=== PATIENT | female | born 1960 | race Asian ===

== ENCOUNTER 2016-09-20 17:47 | Inpatient (IN) | payer OTHER ==
[2016-09-20 18:23] LABS: % IMMATURE GRANULYOCYTES 0.1 % (0.0-1.1); ABSOLUTE IMMATURE GRANULOCYTES 0.01 10^3/uL (0.00-0.10); ADD DIFF? NO; ADD MORPH? NO; ADD SCAN? NO; ATYPICAL LYMPHOCYTE FLAG 0 (0-99); FRAGMENT RBC FLAG 0 (0-99); HEMATOCRIT 44.9 % (38.0-47.0); HEMOGLOBIN 15.1 g/dL (12.6-16.3); LEFT SHIFT FLG 0 (0-99); LIPEMIA HEMOLYSIS FLAG 80 (0-99); MEAN CELL HEMOGLOBIN CONCENTR. 33.6 g/dL (32.4-36.7); MEAN CELL VOLUME 98.2 fL (81.5-99.8); MEAN PLATELET VOLUME 9.5 fL (8.7-11.7); PLATELET CLUMPS FLAG 60 (0-99); PLATELET COUNT 206 10^3/uL (150-400); RED BLOOD CELL COUNT 4.57 10^6/uL (4.18-5.33); RED CELL DISTRIBUTION WIDTH 12.8 % (11.5-15.2)
[2016-09-20 18:43] LABS: ANION GAP 12 mEq/L (8-16); CALCIUM 10.1 mg/dL (8.5-10.4); CARBON DIOXIDE 21 mEq/l (22-31); CHLORIDE 110 mEq/L (97-110); CREATININE 0.6 mg/dL (0.6-1.0); ETHANOL SERUM < 10 mg/dL (0-10); GLOMERULAR FILTRATION RATE > 60; GLUCOSE 111 mg/dL (70-100); POTASSIUM 3.8 mEq/L (3.5-5.2); SALICYLATE < 1.0 mg/dL (2.0-20.0); SODIUM 143 mEq/L (134-144)
--- NOTE | 2016-09-20 20:11 | EDPHY ---
H & P Time Seen by Provider: 09/20/16 17:56 HPI/ROS: HPI Suicidal thoughts. 56-year-old female by private vehicle. She has a history of depression, anxiety and nervous breakdowns. She reports that when she has nervous breakdown she often become suicidal. She reports that she was having a nervous breakdown at home earlier this evening. She then became suicidal and thought of overdosing on Phenergan. On my evaluation she currently states that she does not feel suicidal but does not want to go home. She denies any alcohol or other ingestions tonight. ROS: Constitutional: No fever, no chills. No weakness. Eyes: No discharge. No changes in vision. ENT: No sore throat. No nasal congestion or rhinorrhea. Respiratory: No cough. No shortness of breath. Cardiac: No chest pain, no palpitations. Gastrointestinal: No abdominal pain, no vomiting, no diarrhea. Genitourinary: No hematuria. No dysuria or increased frequency with urination. Musculoskeletal: No back pain. No neck pain. No myalgias or arthralgias. Skin: No rashes. Neurological: No headache. No focal weakness or altered sensation. Past medical history: Anxiety, depression. Social history: Here by herself. Nonsmoker. Denies alcohol. Physical Exam: General Appearance: Alert, no distress. This patient is responding to questions appropriately and in full sentences. This patient appears well- hydrated and well-nourished. Eyes: Pupils equal and round no pallor or injection. No lid edema, erythema or injection. Respiratory: There are no retractions, lungs are clear to auscultation with good air movement bilaterally. Cardiovascular: Regular rate and rhythm. No murmur. Gastrointestinal: Abdomen is soft and nontender, no masses, bowel sounds normal. No focal tenderness at McBurney's point. No Cramer sign. Neurological: Motor sensory function is grossly intact. Cranial nerves are normal. Gait is normal. Skin: Warm and dry, no rashes. Musculoskeletal: Neck is supple and nontender. Extremities are symmetrical. All joints range without pain or impingement. Psychiatric: No agitation. Flat affect. Database: EKG: Imaging: Procedures: Emergency department course: Patient placed on a detainer on arrival. Patient seen by TLC promptly after being medically cleared by me. Patient placed on a M1 hold by a [facility]. She is going to be admitted to [address] [place] [address]. I have filled out the appropriate transfer paperwork. She was transferred to [address] [place] [address] in stable and improved condition. Differential Diagnosis: The differential diagnosis on this patient includes but is not limited to situational depression, major depression, suicidal ideation. This represents a partial list of diagnoses considered. These considerations are based on history , physical exam, past history, reassessment and diagnostic testing. Smoking Status: Light smoker Constitutional: Initial Vital Signs Temperature (C) 36.5 C 09/20/16 17:52 Heart Rate 83 09/20/16 17:52 Respiratory Rate 14 09/20/16 17:52 Blood Pressure 88/61 L 09/20/16 17:52 O2 Sat (%) 94 09/20/16 17:52 O2 Delivery Mode Room Air Allergies/Adverse Reactions: latex Allergy (Verified 09/20/16 17:52) morphine Allergy (Verified 09/20/16 17:52) Home Medications: Medication Instructions Recorded CLONAZEPAM 09/20/16 Celexa 09/20/16 Medical Decision Making - Data Points Laboratory Results: Laboratory Results 09/20/16 18:13 09/20/16 18:13 09/20/16 09/20/16 09/20/16 18:29 18:13 18:13 WBC RBC Hgb Hct MCV MCH MCHC RDW Plt Count MPV Neut % (Auto) Lymph % (Auto) Marathon % (Auto) Eos % (Auto) Baso % (Auto) Nucleat RBC Rel Count Absolute Neuts (auto) Absolute Lymphs (auto) Absolute Monos (auto) Absolute Eos (auto) Absolute Basos (auto) Absolute Nucleated RBC Immature Gran % Immature Gran # Sodium 143 mEq/L mEq/L (134-144) Potassium 3.8 mEq/L mEq/L (3.5-5.2) Chloride 110 mEq/L mEq/L (97-110) Carbon Dioxide 21 mEq/l L mEq/l (22-31) Anion Gap 12 mEq/L mEq/L (8-16) BUN 10 mg/dL mg/dL (7-23) Creatinine 0.6 mg/dL mg/dL (0.6-1.0) Estimated GFR > 60 Glucose 111 mg/dL H mg/dL (70-100) Calcium 10.1 mg/dL mg/dL (8.5-10.4) Beta HCG, Qual NEGATIVE Salicylates < 1.0 mg/dL L mg/dL (2.0-20.0) Urine Opiates Screen NEGATIVE (NEGATIVE) Acetaminophen < 10 mcg/mL L mcg/mL (10.0-30.0) Urine Barbiturates NEGATIVE (NEGATIVE) Ur Phencyclidine Scrn NEGATIVE (NEGATIVE) Ur Amphetamine Screen NEGATIVE (NEGATIVE) U Benzodiazepines Scrn NEGATIVE (NEGATIVE) Urine Cocaine Screen NEGATIVE (NEGATIVE) U Marijuana (THC) Screen NEGATIVE (NEGATIVE) Ethyl Alcohol < 10 mg/dL mg/dL (0-10) 09/20/16 18:13 WBC 7.20 10^3/uL 10^3/uL (3.80-9.50) RBC 4.57 10^6/uL 10^6/uL (4.18-5.33) Hgb 15.1 g/dL g/dL (12.6-16.3) Hct 44.9 % % (38.0-47.0) MCV 98.2 fL fL (81.5-99.8) MCH 33.0 pg pg (27.9-34.1) MCHC 33.6 g/dL g/dL (32.4-36.7) RDW 12.8 % % (11.5-15.2) Plt Count 206 10^3/uL 10^3/uL (150-400) MPV 9.5 fL fL (8.7-11.7) Neut % (Auto) 47.4 % % (39.3-74.2) Lymph % (Auto) 45.8 % H % (15.0-45.0) Marathon % (Auto) 5.6 % % (4.5-13.0) Eos % (Auto) 0.8 % % (0.6-7.6) Baso % (Auto) 0.3 % % (0.3-1.7) Nucleat RBC Rel Count 0.0 % % (0.0-0.2) Absolute Neuts (auto) 3.41 10^3/uL 10^3/uL (1.70-6.50) Absolute Lymphs (auto) 3.30 10^3/uL H 10^3/uL (1.00-3.00) Absolute Monos (auto) 0.40 10^3/uL 10^3/uL (0.30-0.80) Absolute Eos (auto) 0.06 10^3/uL 10^3/uL (0.03-0.40) Absolute Basos (auto) 0.02 10^3/uL 10^3/uL (0.02-0.10) Absolute Nucleated RBC 0.00 10^3/uL 10^3/uL (0-0.01) Immature Gran % 0.1 % % (0.0-1.1) Immature Gran # 0.01 10^3/uL 10^3/uL (0.00-0.10) Sodium Potassium Chloride Carbon Dioxide Anion Gap BUN Creatinine Estimated GFR Glucose Calcium Beta HCG, Qual Salicylates Urine Opiates Screen Acetaminophen Urine Barbiturates Ur Phencyclidine Scrn Ur Amphetamine Screen U Benzodiazepines Scrn Urine Cocaine Screen U Marijuana (THC) Screen Ethyl Alcohol Departure - Departure Disposition: [facility] IP Clinical Impression: Suicidal ideation Referrals: STEPHIE RIOS [Primary Care Provider] - As per Instructions
[2016-09-21] MEDS ORDERED: MAG HYDROX/AL HYDROX/SIMETH 30 ML UDCUP PO PRN (00:50)
[2016-09-21] MEDS ORDERED: ACETAMINOPHEN 325 MG TAB PO PRN (00:50)
[2016-09-21] MEDS ORDERED: MAGNESIUM HYDROXIDE 30 ML UDCUP PO PRN (00:50)
[2016-09-21] MEDS: clonazePAM 1 MG TAB PO SCH ×2 (00:57→20:43)
[2016-09-21] MEDS: CITALOPRAM 20 MG TAB PO SCH ×2 (00:57→20:43)
[2016-09-21] MEDS: ALBUTEROL 60 PUFFS/8 GM MDI IH PRN ×2 (00:57→09:23)
--- NOTE | 2016-09-21 09:12 | GCON ---
DATE OF CONSULTATION: 09/21/2016 HISTORY OF PRESENT ILLNESS: The patient is a pleasant 56-year-old female with a history of depressi on and pancreatitis who presents with suicidality and depression. She was having suicidal ideation, stating she would overdose on Phenergan. She is currently living with her mother, and she feels li ke it is exacerbating her mood. She does have a history of depression. She denies recent fevers, c hills, cough, sputum, nausea, vomiting, or diarrhea. She does not drink alcohol. REVIEW OF SYSTEMS: A complete 10-point review of systems was conducted and negative except as noted in the HPI. PAST MEDICAL HISTORY: 1. Status post cholecystectomy. 2. Choledocholithiasis. 3. History of pancreatitis with ERCP. 4. Depression. ALLERGIES: Morphine and latex. MEDICATIONS: Lexapro and clonazepam. FAMILY HISTORY: Notable for diabetes. SOCIAL HISTORY: She does smoke cigarettes. No alcohol. Currently living with her mother and not w orking. PHYSICAL EXAM: VITAL SIGNS: Temp 36.4, blood pressure 106/52, pulse 68, breathing 16 times a minut e, 94% on room air. GENERAL: No acute distress. HEENT: Sclerae anicteric. Oropharynx clear. Mu cous membranes moist. NECK: Supple without lymphadenopathy or JVD. LUNGS: Clear to auscultation bilaterally. HEART: S1, S2. ABDOMEN: Soft, nontender, nondistended. LOWER EXTREMITIES: No flor a. Calves are nontender. SKIN: Without rash. NEUROLOGIC: Nonfocal. LABS: Chem 7 normal. CBC normal. White count normal. Negative beta HCG. Tox screen is unremarka ble. ASSESSMENT/PLAN: This is a 56-year-old female with suicidality. 1. Medical evaluation. I think the patient is medically well. TSH was not checked and I have writ ten for that. Please call me on the hospital pager if it is abnormal. 2. Suicidality. This appears to be a mood disorder. Management per Psychiatry. /[id number]/MODL
--- NOTE | 2016-09-21 16:07 | BAPA ---
DATE OF SERVICE: 09/21/2016 CHIEF COMPLAINT: "I need help controlling my emotions." HISTORY OF PRESENT ILLNESS: Patient is a 56-year-old female with a history of treatment-resis tant depression since 1996. She has had concomitant anxiety for the past 10 years as well. She rep orts having done very well on a combination of Zoloft and Klonopin for a number of years but decidin g to go off it about 6 months ago due to cost. She states that money has been very tight, and she a nd her boyfriend have been living with her mother and that until she switched her insurance she was not eligible for any of the discount plans. She reports doing well for a month or so, smoking more pot at bedtime for sleep and did not notice any difference, but she reports starting in March he r mood began to decline; her anxiety increased. Finally about a month ago, she returned to her [facility] physician to restart her medications. She started Celexa and Klonopin at that time. The C elexa was chosen because she was on a 4-dollar plan and she could not afford the Zoloft. She report s currently still feeling depressed. She feels "trapped" living with her mother with whom she does not get along. She states they argue constantly over the fact that her boyfriend lives there, and h er mother states that she did not give him permission to be there. She has told them they have unti l the end of August to leave, and she states that they have had more stress about a rental propert y that they want to rent that is not finished. She reports frequent crying episodes multiple times a day, poor energy and motivation, anhedonia, withdrawal from her friends and family, excessive slee p of more than 12 hours per day, feelings of helplessness, hopelessness and despair and recent thoug hts of , dying and suicide. She states that these have increased over the last several days, a nd she had a plan to overdose on her psychotropic medicines. She disclosed this to her boyfriend wh o brought her to the hospital. PAST PSYCHIATRIC HISTORY: Patient has had psychotherapy several times previously, not currently. S he has also seen several psychiatrists, but her medicines are currently prescribed by her primary [facility] physician at [facility]. She previously has tried Zoloft, Cymbalta, Prozac, Paxil, Klonopin and Awa exa. The Celexa was started a month ago at 20 and increased to 40 about a week ago. She notes no p revious psychiatric hospitalizations. She has had recurrent suicidal ideations over the years, thou gh has had no suicide attempts. ALLERGIES: Latex and morphine. MEDICATIONS: Celexa 40 mg daily and Klonopin 1 mg h.s. PAST MEDICAL HISTORY: Significant for reported daily migraines. SOCIAL HISTORY: The patient has been twice, and has a daughter who is 16. She gave the candida lozano up for adoption, however, and did not reconnect with her until a year ago. She states that mary michael now communicate via Facebook, and she made plans to meet her in the future. She has a boyfriend of 2 years whom she states that she knew through high school. The patient was born and raised in [place] [place] [facility] and currently lives with her mother and her boyfriend in her mother's home in [place]. She i s a high school grad with a BA in Women and the Law. She is on SSDI since 2012 for her psychiatric conditions. SUBSTANCE ABUSE HISTORY: The patient occasionally smokes marijuana. She states that it was more fr equent when she was off the medications, though now is less than once a week. She denies any alcoho l use or other drugs. FAMILY HISTORY: Patient's older sister suffers from depression. ADMISSION LABORATORY: CBC is normal. Serum chemistries are normal. Beta hCG is negative. Urine d rug screen is negative for all substances. IMPRESSION: Major depressive disorder, recurrent, severe, without psychosis, chronic and treatment- resistant features, family conflict, lack of permanent housing, financial stress, recurrent illness, chronic illness and cannabis use disorder, moderate and treatment noncompliance. Patient is a 56-year-old, Indian female who presents at this time in a very depressed state. She states that she wants to be back on her medications and initially we were talking about her go ing back on her Zoloft. She states she only did not go back on it because it was more expensive jonelle n the Celexa. I reviewed the choices with her and certainly said we could do that, but also the Awa exa was probably more calming, especially at the high doses of Zoloft she was taking before at 200. She was given the option of restarting Zoloft at 100 or continuing the Celexa 40 mg to give it more time to be effective. I also offered her the option of augmentations, including discussions of [facility] augmenting agents lithium, thyroid and amphetamines and Abilify. She is unable to afford Abili fy and was interested in trying lithium. The risks, benefits and alternatives of lithium were discu ssed with her at length, and she agreed to proceed. She is aware of the potential toxicities, inclu ding cardiac toxicity and was also aware that we are unable to get an EKG on the weekends at this [facility]. She is willing to forego this and begin treatment. She has no history of any cardiac dysfu nction or problems including any history of arrhythmias. Estimated length of stay is 3-5 days. /[id number]/MODL
[2016-09-21] MEDS: NICOTINE POLACRILEX 2 MG GUM B PRN (17:53)
[2016-09-22] MEDS: NICOTINE POLACRILEX 2 MG GUM B PRN ×3 (09:37→18:58)
[2016-09-22] MEDS ORDERED: LITHIUM CARBONATE ER 450 MG TAB PO ONE (11:00)
[2016-09-22] MEDS: ALBUTEROL 60 PUFFS/8 GM MDI IH PRN (18:58)
[2016-09-22] MEDS: CITALOPRAM 20 MG TAB PO SCH (20:35)
[2016-09-22] MEDS: clonazePAM 1 MG TAB PO SCH (20:36)
[2016-09-22] MEDS: LITHIUM CARBONATE ER 450 MG TAB PO SCH (20:36)
--- NOTE | 2016-09-22 22:35 | SOAPPROG ---
SOAP Progress Note Assessment/Plan: Assessment: Plan: 09/22/16 22:35 Improved. Will proceed with lithium augmentation. Subjective: Pt seen, discussed with staff. Reports feeling brighter, more hopeful. Active in therapies. Appreciative of support from BF. Objective: Vital Signs Temp Pulse Resp BP Pulse Ox 36.7 C 64 14 110/51 L 96 09/22/16 06:00 09/22/16 06:00 09/22/16 06:00 09/22/16 06:00 09/22/16 06:00 MSE: Calm, coop. Affect is brighter, stable. Mood is "better." TP linear. TC reveals no psychosis. No SI. - Time Spent With Patient Time Spent With Patient: 15" - Pending Discharge Pending Discharge Within 24 Hours: No Pending Discharge Within 48 Hours: No ICD10 Worksheet Patient Problems: Problems Problem Status Onset Suicidal ideation Acute
[2016-09-23] MEDS: ALBUTEROL 60 PUFFS/8 GM MDI IH PRN ×3 (07:42→21:04)
[2016-09-23] MEDS: LORazepam 0.5 MG TAB PO PRN ×2 (08:48→15:30)
[2016-09-23] MEDS: NICOTINE POLACRILEX 2 MG GUM B PRN ×3 (09:48→17:34)
[2016-09-23] MEDS: IBUPROFEN 600 MG TAB PO PRN (15:35)
--- NOTE | 2016-09-23 18:34 | SOAPPROG ---
SOAP Progress Note Assessment/Plan: Assessment: Plan: 09/22/16 22:35 Improved. Will proceed with lithium augmentation. 09/23/16 18:35 Improved, but still struggling with family conflicts. Significant Borderline traits in interactions with mother. Will [facility], monitor. Subjective: Pt seen, discussed with staff. Reports feeling "out of sorts." C/o increased anxiety and decreased mood after her mother called the unit yesterday. She had apparently randomly called the ED searching for pt and the ED called the unit to get permission to transfer the call. Pt agreed, but refused to actually talk to her mother. She tells me that she doesn't want to talk to any of her relatives. She remains angry that her mother wants her and her BF out of her home. She states her BF is also mad and refuses to tell her mother anything about her whereabouts. They have no place to live after 09/25/16 by pt report. She is tolerating Li well with no SE's. Objective: Vital Signs Temp Pulse Resp BP Pulse Ox 36.4 C 62 14 119/57 L 97 09/23/16 06:00 09/23/16 06:00 09/23/16 06:00 09/23/16 06:00 09/23/16 06:00 MSE: Calm, coop. Affect is constricted, stable. Mood is "not very good." TP linear. TC reveals no psychosis. Denies active SI. - Time Spent With Patient Time Spent With Patient: 25" - Pending Discharge Pending Discharge Within 24 Hours: No Pending Discharge Within 48 Hours: No ICD10 Worksheet Patient Problems: Problems Problem Status Onset Suicidal ideation Acute
[2016-09-23] MEDS: CITALOPRAM 20 MG TAB PO SCH (21:02)
[2016-09-23] MEDS: LITHIUM CARBONATE ER 450 MG TAB PO SCH (21:02)
[2016-09-23] MEDS: clonazePAM 1 MG TAB PO SCH (21:02)
[2016-09-24] MEDS: ALBUTEROL 60 PUFFS/8 GM MDI IH PRN ×3 (06:59→18:35)
[2016-09-24] MEDS ORDERED: SUMAtriptan 50 MG TAB PO ONE (09:04)
[2016-09-24] MEDS: LORazepam 0.5 MG TAB PO PRN (09:07)
[2016-09-24] MEDS: NICOTINE POLACRILEX 2 MG GUM B PRN ×3 (09:07→18:35)
[2016-09-24] MEDS ORDERED: SUMAtriptan 25 MG TAB PO ONE ×2 (09:30→14:30)
--- NOTE | 2016-09-24 17:14 | SOAPPROG ---
SOAP Progress Note Assessment/Plan: Assessment: Plan: 09/22/16 22:35 Improved. Will proceed with lithium augmentation. 09/23/16 18:35 Improved, but still struggling with family conflicts. Significant Borderline traits in interactions with mother. Will [facility], monitor. 09/24/16 17:14 Backslid a bit today. CCM. Check lithium level. Subjective: Pt seen, discussed with staff. Reports feeling "pretty down" today mainly due to migraine. Requests Imitrex. Mood remains low. Tolerating lithium well. Objective: Vital Signs Temp Pulse Resp BP Pulse Ox 36.6 C 66 14 99/49 L 96 09/24/16 06:00 09/24/16 06:00 09/24/16 06:00 09/24/16 06:00 09/24/16 06:00 MSE: Calm, coop. Affect is blunted, dysphoric, stable. Mood is "pretty bad." TP linear. TC reveals no psychosis. SI persists. - Time Spent With Patient Time Spent With Patient: 25" ICD10 Worksheet Patient Problems: Problems Problem Status Onset Suicidal ideation Acute
[2016-09-24] MEDS: clonazePAM 1 MG TAB PO SCH (20:43)
[2016-09-24] MEDS: CITALOPRAM 20 MG TAB PO SCH (20:43)
[2016-09-24] MEDS: LITHIUM CARBONATE ER 450 MG TAB PO SCH (20:43)
[2016-09-25] MEDS: LORazepam 0.5 MG TAB PO PRN ×3 (06:10→19:59)
[2016-09-25] MEDS: ALBUTEROL 60 PUFFS/8 GM MDI IH PRN ×2 (06:13→19:59)
[2016-09-25] MEDS: NICOTINE POLACRILEX 2 MG GUM B PRN ×3 (08:45→17:29)
[2016-09-25] MEDS ORDERED: clonazePAM 1 MG TAB PO SCH ×2 (16:37→16:39)
[2016-09-25] MEDS: CITALOPRAM 20 MG TAB PO SCH (21:04)
[2016-09-25] MEDS: LITHIUM CARBONATE ER 450 MG TAB PO SCH (21:04)
[2016-09-26] MEDS: LORazepam 0.5 MG TAB PO PRN ×3 (04:20→19:25)
--- NOTE | 2016-09-26 07:46 | SOAPPROG ---
SOAP Progress Note Assessment/Plan: Assessment: Plan: 09/22/16 22:35 Improved. Will proceed with lithium augmentation. 09/23/16 18:35 Improved, but still struggling with family conflicts. Significant Borderline traits in interactions with mother. Will [facility], monitor. 09/24/16 17:14 Backslid a bit today. CCM. Check lithium level. 09/26/16 07:47 Improving. CCM. Continue d/c planning. Subjective: LATE ENTRY FROM 09/25/16 Pt seen, discussed with staff. Reports feeling better today. Encouraged by CC' s contact with her mother. She remains ambivalent about her relationship with her mother and sees no real duty to care for her. She also doesn't understand why her 86 y/o mother doesn't want pt's BF living in the home. She has offered for pt to live there with her but not her BF. Pt hopes to find other accommodations with her BF. Mood is brighter. H/a's persist at a low level. Tolerating lithium well. Objective: Vital Signs Temp Pulse Resp BP Pulse Ox 36.4 C 79 16 98/47 L 92 09/26/16 05:03 09/26/16 05:03 09/26/16 05:03 09/26/16 05:03 09/26/16 05:03 MSE: Calm, coop. Affect is brighter, stable. Mood is "better." TP linear. TC reveals no psychosis. No current SI. - Time Spent With Patient Time Spent With Patient: 25" ICD10 Worksheet Patient Problems: Problems Problem Status Onset Suicidal ideation Acute
[2016-09-26] MEDS: ALBUTEROL 60 PUFFS/8 GM MDI IH PRN ×3 (09:34→20:57)
[2016-09-26] MEDS: NICOTINE POLACRILEX 2 MG GUM B PRN ×3 (09:34→18:27)
[2016-09-26] MEDS ORDERED: SUMAtriptan 6 MG/0.5 ML VIAL SC ONE ×2 (10:53→14:30)
--- NOTE | 2016-09-26 15:48 | SOAPPROG ---
SOAP Progress Note Assessment/Plan: Assessment: Plan: 09/22/16 22:35 Improved. Will proceed with lithium augmentation. 09/23/16 18:35 Improved, but still struggling with family conflicts. Significant Borderline traits in interactions with mother. Will [facility], monitor. 09/24/16 17:14 Backslid a bit today. CCM. Check lithium level. 09/26/16 07:47 Improving. CCM. Continue d/c planning. 09/26/16 15:48 Continued gradual improvement. CCM. Subjective: Pt seen, discussed with staff. Reports feeling "pretty down." States she awakened at 0330 again last night and went to the nurses' station for some tea. The report this morning was that she slept through the night. Her mood remains low, though appears brighter in the milieu. Tolerating lithium well with no SE's. Objective: Vital Signs Temp Pulse Resp BP Pulse Ox 36.4 C 79 16 98/47 L 92 09/26/16 05:03 09/26/16 05:03 09/26/16 05:03 09/26/16 05:03 09/26/16 05:03 MSE: Calm, coop. Affect is blunted, though she does smile spontaneously at times and responds to humor. TP is linear. TC reveals no psychosis. SI persists. - Time Spent With Patient Time Spent With Patient: 25" ICD10 Worksheet Patient Problems: Problems Problem Status Onset Suicidal ideation Acute
[2016-09-26] MEDS: LITHIUM CARBONATE ER 450 MG TAB PO SCH (18:31)
[2016-09-26] MEDS: clonazePAM 1 MG TAB PO SCH (20:55)
[2016-09-26] MEDS: CITALOPRAM 20 MG TAB PO SCH (20:55)
[2016-09-27] MEDS: ALBUTEROL 60 PUFFS/8 GM MDI IH PRN ×2 (03:22→19:11)
[2016-09-27] MEDS: LORazepam 0.5 MG TAB PO PRN ×2 (03:24→13:18)
[2016-09-27 09:30] LABS: LITHIUM 0.6 mEq/L (0.6-1.2)
[2016-09-27] MEDS: NICOTINE POLACRILEX 2 MG GUM B PRN ×3 (09:34→16:59)
--- NOTE | 2016-09-27 15:05 | SOAPPROG ---
SOAP Progress Note Assessment/Plan: Assessment: Plan: 09/22/16 22:35 Improved. Will proceed with lithium augmentation. 09/23/16 18:35 Improved, but still struggling with family conflicts. Significant Borderline traits in interactions with mother. Will [facility], monitor. 09/24/16 17:14 Backslid a bit today. [facility]. Check lithium level. 09/26/16 07:47 Improving. [facility]. Continue d/c planning. 09/26/16 15:48 Continued gradual improvement. CCM. 09/27/16 15:07 remains dysphoric. Significant character overlay with possible Borderline traits. Will move citalopram dose to 1800 to move peak away from onset of REM predominant sleep. Continue d/c planning. Subjective: Pt seen, discussed with staff. Reports feeling "still down." Awoke at 0330 again. Remains anxious re: d/c and does not want to return to her M's. Participating actively in therapies. Objective: Vital Signs Temp Pulse Resp BP Pulse Ox 35.9 C L 73 14 80/47 L 95 09/27/16 03:37 09/27/16 03:37 09/27/16 03:37 09/27/16 03:37 09/27/16 03:37 MSE: Calm, coop. Affect is blunted, though smiles occasionally. Mood is "not too good." TP linear. TC reveals no psychosis. DI "better", remains linked to d/c plan/housing. - Time Spent With Patient Time Spent With Patient: 25" ICD10 Worksheet Patient Problems: Problems Problem Status Onset Suicidal ideation Acute
[2016-09-27] MEDS: CITALOPRAM 20 MG TAB PO SCH (16:59)
[2016-09-27] MEDS: clonazePAM 1 MG TAB PO SCH (20:16)
[2016-09-27] MEDS: LITHIUM CARBONATE ER 450 MG TAB PO SCH (20:16)
[2016-09-28] MEDS: ALBUTEROL 60 PUFFS/8 GM MDI IH PRN ×3 (02:26→20:47)
[2016-09-28] MEDS: LORazepam 0.5 MG TAB PO PRN ×3 (02:27→19:47)
[2016-09-28] MEDS: NICOTINE POLACRILEX 2 MG GUM B PRN (13:22)
[2016-09-28] MEDS: [UNRECOGNIZED DRUG - OTHER] TP PRN (15:50)
[2016-09-28] MEDS: CITALOPRAM 20 MG TAB PO SCH (17:20)
[2016-09-28] MEDS: LITHIUM CARBONATE ER 450 MG TAB PO SCH (20:46)
[2016-09-28] MEDS: clonazePAM 1 MG TAB PO SCH (20:46)
[2016-09-29] MEDS: LORazepam 0.5 MG TAB PO PRN ×3 (05:16→17:27)
[2016-09-29] MEDS: ALBUTEROL 60 PUFFS/8 GM MDI IH PRN ×3 (05:17→20:59)
[2016-09-29] MEDS: IBUPROFEN 600 MG TAB PO PRN (14:38)
[2016-09-29] MEDS: [UNRECOGNIZED DRUG - OTHER] TP PRN ×2 (15:58→20:59)
[2016-09-29] MEDS: CITALOPRAM 20 MG TAB PO SCH (17:10)
--- NOTE | 2016-09-29 19:57 | SOAPPROG ---
SOAP Progress Note Assessment/Plan: Assessment: 56yo female admitted with hx of chronic MDD since 1996 and worsening anxiety x 10yrs, admitted with recurring worsening depression and SI in context of medication changes and notable psychosocial stressors 09/28/16 16:00 (late entry) sleep 7.5hrs, altho did take a prn Ativan at 0230. denies med s/e. states Klonopin incr to 2mg hs helps her not awaken at night with anxiety attack, and just return to sleep. but did use prn Ativan feels a little lightheaded at times, dizzy w/standing, no tremor or ataxia. chronic daily migraines, affected by stress and weather pressure changes etc. States they have been extensively worked up as outpt. Used to take sumatriptan and get weekly toradol IM. pt states she called her mother last pm. M will visit tomorrow, states she has made a list of what to talk with her about. very anxious about this meeting. also today is 5yr anniv of of her stepfather's , whom she was close to. feels down today about this. talked about her boyfriend, known x 40yrs since HS, he found her on FB and they' ve been back tog for 2.5yrs. now living with her 86yo mother who is trying to get them to move out. family conflict b/c mother and sibs "think he's a liar and a con...", states BF makes her happy, and siblings "just don't want me to be happy" MSE: calm, cooperative,+psychom retardation, low vol speech, nml rate, fair/good eye contact, resticted affect, depr mood, no current SI and feels safe in hosp, no thoughts to harm others. no psychotic sxs. Plan: cont vol, on AG privs cont Celexa 40mg, with Li augmentation taking Klonopin 2mg hs. still using prn ativan occasionally. maintain hydration, recent Li 0.6 Objective: Vital Signs Temp Pulse Resp BP Pulse Ox 36.4 C 87 14 81/43 L 95 09/29/16 06:36 09/29/16 06:36 09/29/16 06:36 09/29/16 06:36 09/29/16 06:36 - Time Spent With Patient Time Spent With Patient: 35min - Pending Discharge Pending Discharge Within 24 Hours: No Pending Discharge Within 48 Hours: No ICD10 Worksheet Patient Problems: Problems Problem Status Onset Suicidal ideation Acute
[2016-09-29] MEDS: LITHIUM CARBONATE ER 450 MG TAB PO SCH (20:44)
[2016-09-29] MEDS: clonazePAM 1 MG TAB PO SCH (20:44)
[2016-09-30] MEDS: ALBUTEROL 60 PUFFS/8 GM MDI IH PRN ×3 (02:51→20:56)
[2016-09-30] MEDS: LORazepam 0.5 MG TAB PO PRN ×3 (02:51→18:24)
[2016-09-30] MEDS: SUMAtriptan 6 MG/0.5 ML VIAL SC PRN (09:21)
[2016-09-30] MEDS: [UNRECOGNIZED DRUG - OTHER] TP PRN ×2 (11:25→15:13)
[2016-09-30] MEDS: CITALOPRAM 20 MG TAB PO SCH (17:00)
[2016-09-30] MEDS: clonazePAM 1 MG TAB PO SCH (20:16)
[2016-09-30] MEDS: LITHIUM CARBONATE ER 450 MG TAB PO SCH (20:17)
--- NOTE | 2016-09-30 21:35 | SOAPPROG ---
SOAP Progress Note Assessment/Plan: Assessment: 56yo female admitted with hx of chronic MDD since 1996 and worsening anxiety x 10yrs, admitted with recurring worsening depression and SI and plan to OD on meds, in context of medication changes and incr psychosocial stressors 09/28/16 16:00 (late entry) sleep 7.5hrs, altho did take a prn Ativan at 0230. denies med s/e. states Klonopin incr to 2mg hs helps her not awaken at night with anxiety attack, and just return to sleep. but did use prn Ativan feels a little lightheaded at times, dizzy w/standing, no tremor or ataxia. chronic daily migraines, affected by stress and weather pressure changes etc. States they have been extensively worked up as outpt. Used to take sumatriptan and get weekly toradol IM. pt states she called her mother last pm. M will visit tomorrow, states she has made a list of what to talk with her about. very anxious about this meeting. also today is 5yr anniv of of her stepfather's , whom she was close to. feels down today about this. talked about her boyfriend, known x 40yrs since HS, he found her on FB and they' ve been back tog for 2.5yrs. now living with her 86yo mother who is trying to get them to move out. family conflict b/c mother and sibs "think he's a liar and a con...", states BF makes her happy, and siblings "just don't want me to be happy" MSE: calm, cooperative,+psychom retardation, low vol speech, nml rate, fair/good eye contact, resticted affect, depr mood, no current SI and feels safe in hosp, no thoughts to harm others. no psychotic sxs. PLAN: cont vol, on AG privs cont Celexa 40mg, with Li augmentation taking Klonopin 2mg hs. still using prn ativan occasionally. maintain hydration, recent Li 0.6 09/29/16 22:21 slept 8hr took Ativan at 5am and returned to sleep. did awaken at 3am but able to return to sleep without prn. mother visiting at noon and pt anxious about this. boyfriend will bring mother to hosp but won't be present during their visit. pt plans to take prophylactic prn ativan before visit, and has list of discussion topics. pt did not want to talk much for interview. stated meeting w mother emotionally exhausted her and now is tired. no other physical c/o. denied s/e to meds. "she tried to blame Jeyson. I hope I helped her understand that she's a big part of why I'm here...she pushes me down (criticizes)". Admits 86yo mother "wants both of us out (of her house)...wants her own space back, doesn't like my cat fighting with hers..." but maintains that Jeyson is trying to find them a place. MSE: calm, in bed, resting, nml speech, mood "tired", affect dysphoric, thoughts linear without delusions but remarkable little insight and taking little personal responsibility, denies current SI, no HI/AH/VH. PLAN: no med changes at this time psychosoc stressors contributing to depr, also seems w/personality d/o component Objective: Vital Signs Temp Pulse Resp BP Pulse Ox 36.4 C 69 12 87/52 L 95 09/30/16 03:00 09/30/16 03:00 09/30/16 03:00 09/30/16 03:00 09/30/16 03:00 - Time Spent With Patient Time Spent With Patient: 25min - Pending Discharge Pending Discharge Within 24 Hours: No Pending Discharge Within 48 Hours: No ICD10 Worksheet Patient Problems: Problems Problem Status Onset Suicidal ideation Acute
--- NOTE | 2016-09-30 21:39 | SOAPPROG ---
SOAP Progress Note Assessment/Plan: Assessment: 56yo female admitted with hx of chronic MDD since 1996 and worsening anxiety x 10yrs, admitted with recurring worsening depression and SI and plan to OD on meds, in context of medication changes and incr psychosocial stressors 09/28/16 16:00 (late entry) sleep 7.5hrs, altho did take a prn Ativan at 0230. denies med s/e. states Klonopin incr to 2mg hs helps her not awaken at night with anxiety attack, and just return to sleep. but did use prn Ativan feels a little lightheaded at times, dizzy w/standing, no tremor or ataxia. chronic daily migraines, affected by stress and weather pressure changes etc. States they have been extensively worked up as outpt. Used to take sumatriptan and get weekly toradol IM. pt states she called her mother last pm. M will visit tomorrow, states she has made a list of what to talk with her about. very anxious about this meeting. also today is 5yr anniv of of her stepfather's , whom she was close to. feels down today about this. talked about her boyfriend, known x 40yrs since HS, he found her on FB and they' ve been back tog for 2.5yrs. now living with her 86yo mother who is trying to get them to move out. family conflict b/c mother and sibs "think he's a liar and a con...", states BF makes her happy, and siblings "just don't want me to be happy" MSE: calm, cooperative,+psychom retardation, low vol speech, nml rate, fair/good eye contact, resticted affect, depr mood, no current SI and feels safe in hosp, no thoughts to harm others. no psychotic sxs. PLAN: cont vol, on AG privs cont Celexa 40mg, with Li augmentation taking Klonopin 2mg hs. still using prn ativan occasionally. maintain hydration, recent Li 0.6 09/29/16 22:21 slept 8hr took Ativan at 5am and returned to sleep. did awaken at 3am but able to return to sleep without prn. mother visiting at noon and pt anxious about this. boyfriend will bring mother to hosp but won't be present during their visit. pt plans to take prophylactic prn ativan before visit, and has list of discussion topics. pt did not want to talk much for interview. stated meeting w mother emotionally exhausted her and now is tired. no other physical c/o. denied s/e to meds. "she tried to blame Jeyson. I hope I helped her understand that she's a big part of why I'm here...she pushes me down (criticizes)". Admits 86yo mother "wants both of us out (of her house)...wants her own space back, doesn't like my cat fighting with hers..." but maintains that Jeyson is trying to find them a place. MSE: calm, in bed, resting, nml speech, mood "tired", affect dysphoric, thoughts linear without delusions but remarkable little insight and taking little personal responsibility, denies current SI, no HI/AH/VH. PLAN: no med changes at this time psychosoc stressors contributing to depr, also seems w/personality d/o component 09/30/16 18:46 slept 7hr last pm c/o migraine this am. reports having low BP this AM, and sometimes feels lightheaded or dizzy, not unsteady or off balance, no ataxia, has been trying to hydrate more she reports. no tremors planning to l/w bf after d/c, not return to mother's home. he hasn't found anything yet. plans to go to IOP after d/c for f/u MSE: calm, coop, in bed resting. nml speech, affect restricted, mood "okay", tp linear, no delusions. i/j limited. no si/hi. no ah/vh PLAN: cont Eskalith 450mg and Celexa 40mg check orthst VS. ?EKG recheck Li in AM. note level can be increased w/Ibuprofen will decr ativan to 0.5mg from 1mg prn to work towards one bzd at d/c vol, on AG. has IOP appt later this week Objective: Vital Signs Temp Pulse Resp BP Pulse Ox 36.4 C 69 12 87/52 L 95 09/30/16 03:00 09/30/16 03:00 09/30/16 03:00 09/30/16 03:00 09/30/16 03:00 - Pending Discharge Pending Discharge Within 24 Hours: No Pending Discharge Within 48 Hours: No ICD10 Worksheet Patient Problems: Problems Problem Status Onset Suicidal ideation Acute
[2016-10-01] MEDS: ALBUTEROL 60 PUFFS/8 GM MDI IH PRN ×3 (03:16→21:19)
[2016-10-01] MEDS: LORazepam 0.5 MG TAB PO PRN ×3 (03:16→18:28)
[2016-10-01 06:10] VITALS: RESP 14
[2016-10-01] MEDS: NICOTINE POLACRILEX 2 MG GUM B PRN ×2 (08:36→18:27)
[2016-10-01 11:52] LABS: ANION GAP 8 mEq/L (8-16); CALCIUM 9.6 mg/dL (8.5-10.4); CARBON DIOXIDE 25 mEq/l (22-31); CHLORIDE 108 mEq/L (97-110); CREATININE 0.8 mg/dL (0.6-1.0); GLOMERULAR FILTRATION RATE > 60; GLUCOSE 69 mg/dL (70-100); POTASSIUM 4.4 mEq/L (3.5-5.2); SODIUM 141 mEq/L (134-144)
--- NOTE | 2016-10-01 14:50 | SOAPPROG ---
SOAP Progress Note Assessment/Plan: Assessment: Plan: 09/22/16 22:35 Improved. Will proceed with lithium augmentation. 09/23/16 18:35 Improved, but still struggling with family conflicts. Significant Borderline traits in interactions with mother. Will [facility], monitor. 09/24/16 17:14 Backslid a bit today. CCM. Check lithium level. 09/26/16 07:47 Improving. CCM. Continue d/c planning. 09/26/16 15:48 Continued gradual improvement. CCM. 09/27/16 15:07 remains dysphoric. Significant character overlay with possible Borderline traits. Will move citalopram dose to 1800 to move peak away from onset of REM predominant sleep. Continue d/c planning. 10/01/16 14:49 Doing better. Need to secure d/c plan. [facility]. Subjective: Pt seen, discussed with staff. Reports feeling "a little better." C/o continued lightheadedness. [place] level up to 1.0 this morning. Continues to devalue mother, idealize BF. Refusing to return to her mother's home. Mood remains low with prominent anxiety. Objective: Vital Signs Temp Pulse Resp BP Pulse Ox 36.4 C 77 14 81/56 L 96 10/01/16 06:00 10/01/16 06:00 10/01/16 06:00 10/01/16 06:00 10/01/16 06:00 Laboratory Results 10/01/16 11:14 MSE: Calm, coop. Affect is blunted, though she does smile spontaneously and appreciates humor. Mood is "OK." TP linear. TC reveals no active SI at this time. - Time Spent With Patient Time Spent With Patient: 25" ICD10 Worksheet Patient Problems: Problems Problem Status Onset Suicidal ideation Acute
[2016-10-01] MEDS: CITALOPRAM 20 MG TAB PO SCH (16:57)
[2016-10-01] MEDS: clonazePAM 1 MG TAB PO SCH (20:47)
[2016-10-02] MEDS: ALBUTEROL 60 PUFFS/8 GM MDI IH PRN ×4 (03:24→21:05)
[2016-10-02] MEDS: LORazepam 0.5 MG TAB PO PRN (03:24)
[2016-10-02] MEDS: SUMAtriptan 6 MG/0.5 ML VIAL SC PRN ×2 (13:21→15:45)
[2016-10-02] MEDS: [UNRECOGNIZED DRUG - OTHER] TP PRN (15:55)
--- NOTE | 2016-10-02 17:28 | SOAPPROG ---
SHIRA Progress Note Assessment/Plan: Assessment: Plan: 09/22/16 22:35 Improved. Will proceed with lithium augmentation. 09/23/16 18:35 Improved, but still struggling with family conflicts. Significant Borderline traits in interactions with mother. Will [facility], monitor. 09/24/16 17:14 Backslid a bit today. [facility]. Check lithium level. 09/26/16 07:47 Improving. [facility]. Continue d/c planning. 09/26/16 15:48 Continued gradual improvement. [facility]. 09/27/16 15:07 remains dysphoric. Significant character overlay with possible Borderline traits. Will move citalopram dose to 1800 to move peak away from onset of REM predominant sleep. Continue d/c planning. 10/01/16 14:49 Doing better. Need to secure d/c plan. [facility]. 10/02/16 17:50 Approaching baseline. Ambivalence and character issues remain prominent. Will continue to hold lithium, monitor dizziness. Focus on consolidative psychotherapy. Finalize d/c plan. Subjective: Pt seen, discussed with staff. Reports feeling "OK I guess." H/a's are stable. States she is "coming down with a cold." Denies ear pain or problems with hearing, however. Remains rather stuck. Externalizing blame for conflict with mother completely. Dizziness continues, not better after holding lithium. Objective: Vital Signs Temp Pulse Resp BP Pulse Ox 36.4 C 74 14 79/46 L 93 10/02/16 06:00 10/02/16 06:00 10/02/16 06:00 10/02/16 06:00 10/02/16 06:00 Laboratory Results 10/01/16 11:14 MSE: Calm, coop. Affect is slightly blunted, stable, smiles spontaneously. Mood is "OK." TP linear. TC reveals no psychosis. - Time Spent With Patient Time Spent With Patient: 15" ICD10 Worksheet Patient Problems: Problems Problem Status Onset Suicidal ideation Acute
[2016-10-02] MEDS: LITHIUM CARBONATE ER 450 MG TAB PO SCH (17:50)
[2016-10-02] MEDS: CITALOPRAM 20 MG TAB PO SCH (17:54)
[2016-10-02] MEDS: clonazePAM 1 MG TAB PO SCH (21:05)
[2016-10-03] MEDS: ALBUTEROL 60 PUFFS/8 GM MDI IH PRN ×2 (03:47→07:43)
[2016-10-03 04:08] VITALS: BP 87/50; PULSE 65; TEMP 97.3; O2SAT 92
[2016-10-03] MEDS: LORazepam 0.5 MG TAB PO PRN (07:43)
--- NOTE | 2016-10-08 17:33 | BDS ---
[f rep st] BEHAVIORAL HEALTH DISCHARGE SUMMARY REASON FOR ADMISSION: Patient is a 56-year-old [place] female, who was admitted due to suici kym ideation. She was brought to the hospital by her boyfriend after she stated she had a plan to o verdose. She and her boyfriend have been living with her mother, and there had been numerous confli cts there, and she reported feeling "trapped." A full description of the events preceding admission can be found in admission history dated 09/21/2016. ADMITTING DIAGNOSES: 1. Major depressive disorder, recurrent, severe, without psychosis, chronic, treatment-resistant fe atures. 2. Family conflicts. 3. Lack of permanent housing. 4. Financial stress. 5. Recurrent illness. 6. Chronic illness. 7. Cannabis use disorder, moderate. 8. Treatment noncompliance. ADMISSION PHYSICAL EXAMINATION: Performed by Dr. Bert Alfonso revealed no acute physical findings . ADMISSION LABORATORY: CBC was normal. Serum chemistries showed no major abnormalities. Nonfasting glucose was up at 111. Urine drug screen showed no substances of abuse. HOSPITAL COURSE: Patient was admitted to the behavior health services inpatient unit on an M1 hold. She was pleasant and cooperative, interacted well, though was somewhat guarded. She was very focu sed on the conflict with her mother and expressed a lot of anger towards her mother. She stated jonelle t she believed her mother was manipulative and stated repeatedly "it's always about her." When this was investigated further, we discovered that her mother is 86 years old and had previously lived al one. The patient and her boyfriend had moved into her home with her mother's permission, though her mother reported that she never said the boyfriend could stay there. This set up a conflict with th e boyfriend and the mother, and the mother was critical and unhappy that the boyfriend was there. T he mother expressed to the sub acute care nurse that she wanted her daughter to stay, but not the boyfri end and this was an ongoing source of conflict. During her hospitalization, the patient was able to talk with her mother by phone and also had several visits in person, and utilized those to try to s et limits with her mother, to blame her mother for her suicidality, and to attempt to secure an agre ement that they could both continue to live with her. The mother continued to set limits, and the p atient then did not have a disposition as they had no other permanent housing. Ultimately, the boyf gold stated that he would pay for a hotel room while they were trying to get into another home as a n alternative to her going back to her mother's and him going elsewhere. The patient insisted that she needs to be with a boyfriend because he had agreed to manage her medications for her so she was not attempted overdose. Efforts by the sub acute care nurse and myself to reframe this and to suggest mary nolan her perspective in regard to relationship with her mother was somewhat skewed were ineffective. In regard to medications, the patient was continued on her outpatient citalopram. I believe that th is was a good antidepressant and was helpful for her chronic anxiety. I suggested instead of changi ng antidepressants, that we would augment. I have reviewed a number of options with her, though she was hesitant in regard to cost for some of them and potential side effects. She preferred a trial of lithium and this was started in the ER preparation at 450 mg at bedtime. She tolerated this well with no apparent side effects. Levels were drawn on 09/27 and 10/01 and were 0.6 and 1.0, respecti vely. With the increase in the serum concentration between levels, I roya an additional metabolic p yohan and her BUN and creatinine had not changed. The patient's TSH prior to his treatment was lenora l at 1.99. Patient's hospitalization was punctuated by several regressions in which she would have more headach es and become unable to participate. These tended to coincide with her boyfriend telling her that mary michael had no solid disposition after discharge as he was unable to secure the particular housing that they were looking for. She revealed herself to be fairly characterologic, including demonstrating s ome borderline traits of idealizing the boyfriend and devaluing mother, and participating in some sp lits. She was steadfast however, in her insistence she would not return to live with her mother. A s her hospitalization progressed, she seemed to continue to regress and was clearly waiting until sh e had the desirable social circumstances to discharge to. We felt like she was safe for discharge w ith resolution of her acute suicidality and planned for discharge on 10/03/2016 for her to go direct ly to her evaluation with Dr. Hagen in the IOP program. On the morning of 10/03,she stated that she was not ready to go because she was having an anxiety attack, and we encouraged her to do so anyway. She did go to the appointment and then was able to discharge with her boyfriend. CONDITION AT DISCHARGE: Stable. Despite her anxiety, she was demonstrating an improved affect, sta bilized sleep, and lack of suicidality. She was tolerating her medications well with no side effect s. DISCHARGE MEDICATIONS: Citalopram 40 mg daily, lithium carbonate ER 450 mg at h.s., clonazepam 2 mg at h.s., albuterol 2 puffs as needed, ibuprofen 600 mg q.6 as needed, and the patient was cautioned that this could have a negative interaction with the lithium and could have resulted in the slight increase in her level. She stated that is the only thing that will help with her headaches besides the triptans. DISCHARGE DIAGNOSES: 1. Major depressive disorder, recurrent, severe, without psychosis. 2. Cannabis use disorder, moderate to severe. 3. Family conflicts. 4. Unemployment. 5. Financial stress. 6. Homelessness. DISPOSITION: Patient left the hospital with her boyfriend. FOLLOWUP: With the IOP program at [facility]. LEGAL COURSE: Patient was converted to a voluntary status at the expiration of her M1 hold. /[id number]/MODL
== END 2016-10-03 09:10 | disposition home or self-care (01) | DRG 885 ==
LOC: BBEH 09-21 00:15
PROVIDERS: ADMIT Psychiatry & Neurology Psychiatry; ATTEND Psychiatry & Neurology Psychiatry
DX: F33.2 Major depressive disorder, recurrent severe without psychotic features (principal); F12.20 Cannabis dependence, uncomplicated; Z59.0 Homelessness; Z91.19 Patient's noncompliance with other medical treatment and regimen
CPT/HCPCS: 80305; G0480; J3030

== ENCOUNTER 2017-12-07 15:01 | Emergency (ER) | payer OTHER ==
[2017-12-07 15:09] VITALS: BP 148/86
--- NOTE | 2017-12-07 15:09 | EDPHY ---
HPI/HX/ROS/PE/MDM Narrative: CHIEF COMPLAINT: Red left eye HISTORY OF PRESENT ILLNESS: The patient is a 57 y/o female complaining of a painful, red left eye associated with green discharge, onset 3 days ago. Around a month ago she was diagnosed with bilateral conjunctivitis at the [facility] and prescribed Tobramycin. She took this medication for 3 days without improvement and began to use allergy eye drops for several days which provided relief. Patient states that she feels like her right eye was never 100% improved. 3 days ago her symptoms again flared, and she began to use the antibiotic previously prescribed without relief of her symptoms. Her right eye is currently mildly itchy and she has mildly blurred vision in her left eye. She denies history of glaucoma. No headache or vomiting. No fever, chills, chest pain, shortness of breath, palpitations, vomiting, diarrhea, urinary complaints, headache, lightheadedness. REVIEW OF SYSTEMS: Aside from elements discussed in the HPI, a comprehensive 10-point review of systems was reviewed and is negative. PAST MEDICAL HISTORY: Depression, anxiety, migraines SOCIAL HISTORY: Lives in [place], single, not employed VITAL SIGNS: Reviewed by me GENERAL: Well-developed, well-nourished, resting comfortably in no respiratory distress. HEENT: Atraumatic. Mouth: moist mucous membranes. No erythema or lesions. Neck : supple with no adenopathy. EYE: Visual Acuity: noted from Nurse's notes. Focused examination of bilateral eyes. Eyelid: Erythema and swelling of upper and lower left eyelid, slight scaling. Pupils: Round and reactive to light, EOMI. Cornea is clear. Conjunctivae: Minimal injection, discharge present on left eye only. Anterior chamber: Normal, no hyphema or hypopyon Skin: No proptosis, no periorbital erythema or swelling, no vesicles. NEURO: Alert and oriented, grossly nonfocal. SKIN: Warm and dry, no rash. PSYCHIATRIC: Normal mentation, no agitation. Portions of this note were transcribed by a medical representative. I personally performed a history, physical exam, medical decision making, and confirmed accuracy of information the transcribed note. ED Course: The patient is a 57 y/o female presenting with a painful, red left eye associated with green discharge, onset 3 days ago. On exam she has erythema and mild swelling of her left upper and lower eyelid, minimal conjunctiva injection on the left conjunctiva, and discharge present on the left eye only. At this time imaging or laboratory studies are not indicated. Her symptoms are consistent with blepharitis +/- conjunctivitis. Doubt periorbital cellulitis. Reassessed patient and discussed clindamycin prescription. I have also advised her to use bacitracin along the lash line and ibuprofen/Tylenol for her symptoms. I have advised her to follow up with her skeet operator in three to five days. Return precautions provided; patient is comfortable with this plan. MDM: Differential diagnosis for the patient's presenting complaints includes corneal abrasion, conjunctivitis, iritis, hordeolum, chalazion, blepharitis, cellulitis , periorbital cellulitis, glaucoma, and contusion. General Time Seen by Provider: 12/07/17 15:06 Initial Vital Signs: Initial Vital Signs Temperature (C) 36.9 C 12/07/17 15:06 Heart Rate 75 12/07/17 15:06 Respiratory Rate 16 12/07/17 15:06 Blood Pressure 148/86 H 12/07/17 15:06 O2 Sat (%) 95 12/07/17 15:06 O2 Delivery Mode Room Air Allergies/Adverse Reactions: latex Allergy (Verified 09/20/16 17:52) morphine Allergy (Verified 09/20/16 17:52) Home Medications: Medication Instructions Recorded Albuterol [Proventil Inhaler HFA 2 puffs IH Q4 PRN #1 mdi 10/03/16 (*)] Citalopram Hydrobromide [Celexa] 40 mg PO HS #30 tablet 10/03/16 clonazePAM [klonoPIN (*)] 2 mg PO HS #30 tab 10/03/16 Abilify 12/07/17 Clindamycin HCl [Clindamycin] 300 mg PO TID #30 cap 12/07/17 Promethazine HCl 12/07/17 Toradol 15 mg/ml Inj (*) 12/07/17 Vistaril 12/07/17 Xeomin 12/07/17 Zomig 12/07/17 Departure - Departure Disposition: Home, Routine, Self-Care Clinical Impression: Blepharitis Qualifiers: Blepharitis type: unspecified type Laterality: left Eyelid: both upper and lower Qualified Code(s): H01.004 - Unspecified blepharitis left upper eyelid; H01.005 - Unspecified blepharitis left lower eyelid; H01.005 - Unspecified blepharitis left lower eyelid Conjunctivitis Qualifiers: Conjunctivitis type: blepharoconjunctivitis Blepharoconjunctivitis type: unspecified Laterality: left Qualified Code(s): H10.502 - Unspecified blepharoconjunctivitis, left eye Condition: Good Instructions: Blepharitis (ED) Additional Instructions: Take Clindamycin as prescribed Use [id number]-ups-jaxitcu bacitracin and rub this on your eyelids. Continue using the allergy eye drops. I recommend Ibuprofen (Motrin,Advil) or Naproxen Sodium (Aleve) for pain and anti-inflammatory effects. You may take either one, but do not take both. Your dose is: Ibuprofen 600mg every 6-8 hours with food. OR Naproxen Sodium (Aleve) 220mg every 12 hours. Follow up with your skeet operator in three to five days. Return to the Emergency Department for severe vision changes, headache, vomiting , fever or other concerns. Referrals: STEPHIE RIOS [Primary Care Provider] - As per Instructions Carlos Loredo MD [Medical Doctor] - As per Instructions Prescriptions: Clindamycin HCl [Clindamycin] 300 mg PO TID #30 cap Report Scribed for: Lora Duggan Report Scribed by: Shante Fairchild Date of Report: 12/07/17 Time of Report: 15:09
== END 2017-12-07 15:58 | disposition home or self-care (01) ==
LOC: CED 15:01
DX: H10.502 Unspecified blepharoconjunctivitis, left eye (principal); Z91.040 Latex allergy status